=== PATIENT | female | born 1980 | race Caucasian/White ===

== ENCOUNTER 2025-10-01 06:40 | Observation (INO) ==
[2025-10-01] MEDS ORDERED: ULTANE GAS IN ONE (07:30)
[2025-10-01] MEDS ORDERED: XYLOCAINE 2 % (PLAIN) ONE (07:30)
[2025-10-01] MEDS ORDERED: KETAMINE HCL ONE (07:30)
[2025-10-01] MEDS: LR 1,000 ML IV 1,000 ML IV ONE (08:09)
[2025-10-01] MEDS: NS 100 ML IV 100 ML ONE (09:00)
[2025-10-01] MEDS: ANCEF VIAL 1 GRAM ONE (09:00)
[2025-10-01] MEDS: PEPCID 20 MG VIAL ONE (09:01)
[2025-10-01] MEDS: BARHEMSYS INJ ONE (09:01)
[2025-10-01] MEDS: OFIRMEV IV 1000 MG VIAL 1,000 MG/100 ML VIAL IV ONE (09:02)
[2025-10-01] MEDS: DIPRIVAN VIAL 20 ML ONE (09:02)
[2025-10-01] MEDS: BRIDION ONE (09:02)
[2025-10-01] MEDS: TORADOL 30 MG VIAL ONE (09:03)
[2025-10-01] MEDS: ZEMURON 100 MG VIAL ONE (09:03)
[2025-10-01] MEDS: FENTANYL VIAL INJ 100 mcg ONE (09:03)
[2025-10-01] MEDS: REGLAN INJ 10 MG VIAL ONE (09:03)
[2025-10-01] MEDS: ZOFRAN INJ 4 MG VIAL ONE (09:03)
[2025-10-01] MEDS: VERSED ONE (09:03)
[2025-10-01] MEDS: DECADRON INJ ONE (09:03)
[2025-10-01] MEDS ORDERED: BENADRYL INJ 50 MG VIAL IVP PRN (09:12)
[2025-10-01] MEDS ORDERED: REGLAN INJ 10 MG VIAL IVP PRN (09:12)
[2025-10-01] MEDS ORDERED: DILAUDID INJ IVP PRN (09:12)
[2025-10-01] MEDS ORDERED: BARHEMSYS INJ IVP PRN (09:12)
[2025-10-01] MEDS ORDERED: ZOFRAN INJ 4 MG VIAL IVP PRN (09:12)
[2025-10-01] MEDS: VERSED IVP PRN (09:15)
[2025-10-01] MEDS: ZOFRAN INJ 4 MG VIAL IVP PRN ×2 (09:15→16:48)
[2025-10-01] MEDS: PEPCID 20 MG VIAL IVP PRN (09:15)
[2025-10-01] MEDS: LR 1,000 ML IV 1,100 ML IV PRN (09:15)
[2025-10-01] MEDS: REGLAN INJ 10 MG VIAL IVP PRN (09:15)
[2025-10-01] MEDS: ANCEF VIAL 1 GRAM IV PRN (09:17)
[2025-10-01] MEDS: DIPRIVAN VIAL 150 ML IVP PRN (09:23)
[2025-10-01] MEDS: KETAMINE HCL IV PRN (09:23)
[2025-10-01] MEDS: FENTANYL VIAL INJ 100 mcg IVP PRN (09:23)
[2025-10-01] MEDS ORDERED: XYLOCAINE 2 % (PLAIN) PRN (09:23)
[2025-10-01] MEDS: DECADRON INJ IVP PRN (09:27)
[2025-10-01] MEDS: PRECEDEX INJ VIAL ONE (09:29)
[2025-10-01] MEDS: BACTROBAN TOPICAL OINT ONE (09:30)
[2025-10-01] MEDS: MARCAINE 0.5% ONE (09:30)
[2025-10-01] MEDS: OFIRMEV IV 1000 MG VIAL 1,000 MG/100 ML VIAL IV PRN (09:48)
[2025-10-01] MEDS: DILAUDID INJ ONE (09:52)
[2025-10-01] MEDS: TORADOL 30 MG VIAL IVP PRN (09:55)
[2025-10-01] MEDS: DILAUDID INJ IVP PRN (10:51)
[2025-10-01] MEDS: ZEMURON 100 MG VIAL IVP PRN (10:52)
[2025-10-01] MEDS: DANTRIUM IVP PRN (11:14)
[2025-10-01] MEDS: PRECEDEX INJ VIAL IVP PRN (11:15)
[2025-10-01] MEDS ORDERED: POLYMYXIN B SULFATE ONE (11:28)
[2025-10-01] MEDS: BRIDION IVP PRN (11:32)
[2025-10-01] MEDS: D5 1/2 NS 1,000 ML 1,000 ML IV SCH (13:30)
[2025-10-01] MEDS: NS 250 ML IV 25 ML IV PRN (13:30)
[2025-10-01] MEDS: ZOSYN VIAL 3.375 GRAMS 3.375 G in NS 100 ML IV 100 ML IV SCH (13:30)
[2025-10-01 16:22] VITALS: BMI 38.6
[2025-10-01] MEDS: PHENERGAN INJ 25 MG IM PRN (19:25)
[2025-10-01] MEDS: MORPHINE SULFATE INJ 2 MG INJ IVP PRN (22:49)
[2025-10-02 05:05] LABS: MEAN PLATELET VOLUME 7.2 fL (7.4-11.0); RED CELL DISTRIBUTION WIDTH 14.4 % (11.6-16.5)
[2025-10-02 05:16] LABS: COR CA(FOR HYPOALB) 9.4 mg/dL (8.5-10.1); COR NA(FOR HYPERGLY) 144 mmol/L (136-145); CREATININE 0.69 mg/dL (0.55-1.02); eGFR NON BLACK RACES > 60 (>60)
[2025-10-02] MEDS ORDERED: CONSULT PHARMACY - POTASSIUM & MAGNESIUM XX SCH (08:00)
[2025-10-02 09:12] VITALS: BP 146/70; PULSE 99; TEMP 98.6; O2SAT 97
[2025-10-02 10:17] VITALS: RESP 17
[2025-10-02] MEDS ORDERED: K-DUR TAB 20 MEQ PO SCH (21:00)
== END 2025-10-02 10:50 | disposition home or self-care (01) ==
LOC: SURG1 06:40 → MED/SURG 06:40
PROVIDERS: ADMIT Surgery; ATTEND Surgery
DX: D64.89 Other specified anemias; D72.828 Other elevated white blood cell count; R79.89 Other specified abnormal findings of blood chemistry; K82.8 Other specified diseases of gallbladder; K80.12 Calculus of gallbladder with acute and chronic cholecystitis without obstruction; R73.09 Other abnormal glucose; R10.84 Generalized abdominal pain; K66.0 Peritoneal adhesions (postprocedural) (postinfection); Z79.899 Other long term (current) drug therapy